=== PATIENT | female | born 1930 | race Caucasian/White ===

== ENCOUNTER 2017-07-07 09:22 | Day surgery (SDC) | payer MEDICARE, OTHER ==
[~2017-07-07] VITALS: Ht 154.9 cm; Wt 67.7 kg
[2017-07-07 10:20] VITALS: BP 129/62
[2017-07-07] MEDS ORDERED: ACET-1600 PO (10:35)
[2017-07-07] MEDS ORDERED: albuterol INH (10:35)
[2017-07-07] MEDS ORDERED: SPIR25TA3 PO (10:35)
[2017-07-07] MEDS ORDERED: Fiber PO (10:35)
[2017-07-07] MEDS ORDERED: FLUT1DIS3 INH (10:35)
[2017-07-07] MEDS ORDERED: FURO20TA3 PO (10:35)
[2017-07-07] MEDS ORDERED: CEPH500T PO (10:35)
[2017-07-07] MEDS ORDERED: MULT-658 PO (10:35)
[2017-07-07] MEDS ORDERED: LORA10CA PO (10:35)
[2017-07-07] MEDS ORDERED: FERR324T5 PO (10:35)
[2017-07-07] MEDS ORDERED: FLUT9.9S16 INH (10:35)
[2017-07-07] MEDS ORDERED: ATOR10TA PO (10:35)
[2017-07-07] MEDS ORDERED: WARF3TAB7 PO (10:35)
[2017-07-07] MEDS ORDERED: AMLO5TAB2 PO (10:35)
[2017-07-07] MEDS ORDERED: OMEP-110 PO (10:35)
[2017-07-07] MEDS ORDERED: DIPHENHYDRAMINE 50 MG/ML, 1ML ONE (10:52)
[2017-07-07] MEDS ORDERED: DIPHENHYDRAMINE 50 MG/ML, 1ML IVPush ONE (11:00)
[2017-07-07] MEDS ORDERED: FENTANYL PF 100 MCG/2ML ONE (12:05)
[2017-07-07] MEDS ORDERED: MIDAZOLAM 1 MG/ML, 2ML ONE (12:05)
[2017-07-07] MEDS ORDERED: LIDOCAINE 2%, 20ML ONE (12:05)
== END 2017-07-07 15:58 | disposition home or self-care (01) ==
LOC: CACL 09:22
PROVIDERS: ATTEND Internal Medicine Cardiovascular Disease
DX: I27.0 Primary pulmonary hypertension (principal); D64.9 Anemia, unspecified; I48.2 Chronic atrial fibrillation; Z95.2 Presence of prosthetic heart valve; Z79.01 Long term (current) use of anticoagulants; Z88.8 Allergy status to other drugs, medicaments and biological substances
CPT/HCPCS: 93451; 99156; C1894; J1200; J2250; J3010; J3490